=== PATIENT | male | born 1960 | race Caucasian/White ===

== ENCOUNTER → 2018-08-09 | Outpatient (CLI) | payer OTHER ==
[~2018-08-09] MED LIST: [UNRECOGNIZED DRUG - REMARK]
== END ==
LOC: CAT 14:34
DX: Z13.6 Encounter for screening for cardiovascular disorders (principal); E78.00 Pure hypercholesterolemia, unspecified

== ENCOUNTER → 2020-12-24 | Outpatient (CLI) | payer BC, OTHER ==
[~2020-12-24] MED LIST changes: +ASA81BEC PO; +CRESTOR20 MG PO; +IRBESARTAN150 MG PO; +PROAIR HFA8.5 GM INH; +REVATIO20 MG PO
== END ==
LOC: SJCVCIMAG 10:07
PROVIDERS: ATTEND Internal Medicine Cardiovascular Disease
DX: I70.201 Unspecified atherosclerosis of native arteries of extremities, right leg (principal); I10 Essential (primary) hypertension; R06.09 Other forms of dyspnea; R68.89 Other general symptoms and signs; Z72.0 Tobacco use

== ENCOUNTER → 2020-12-26 | Outpatient (CLI) | payer BC, OTHER ==
[~2020-12-26] VITALS: Ht 177.8 cm; Wt 85.7 kg
[2020-12-26 07:02] VITALS: BP 141/79
[2020-12-26 07:34] LABS: HEMATOCRIT 49.2 % (42.0-52.0); HEMOGLOBIN 16.7 gm/dL (14.0-18.0); MCH 32.7 pg (26.0-34.0); MCHC 33.9 g/dL (28.0-37.0); MCV 96.4 fL (80.0-100.0); RBC 5.11 mil/uL (4.50-6.00); RDW 13.3 % (10.5-14.5); WBC 7.3 thou/uL (4.0-11.0)
[2020-12-26 07:43] LABS: CALCIUM 9.2 mg/dL (8.5-10.1); CREATININE 0.9 mg/dL (0.7-1.3); POTASSIUM 4.3 mmol/L (3.5-5.1)
[2020-12-26 13:00] LABS: URINE BILIRUBIN NEGATIVE (Negative); URINE BLOOD NEGATIVE (Negative); URINE CLARITY CLEAR; URINE COLOR YELLOW; URINE GLUCOSE-RANDOM* NEGATIVE (Negative); URINE KETONES NEGATIVE (Negative); URINE LEUKOCYTES-REFLEX NEGATIVE (Negative); URINE NITRITE-REFLEX NEGATIVE (Negative); URINE PROTEIN (DIPSTICK) NEGATIVE (Negative); URINE SPECIFIC GRAVITY <= 1.005 (1.005-1.035); URINE UROBILINOGEN 0.2 E.U./dl (0.2-1.0)
--- NOTE | 2020-12-26 16:52 | CATHLAB ---
[facility] [place] [address] [address] INVASIVE PROCEDURE REPORT Name: BESS ROSALES Room #: REG [facility].#: [id number] Admission: 12/26/20 Attend Phys: Adam Jennings MD Discharge: Date of : 64 Report #: [id number] THIS REPORT FOR: cc: Jaspal Leone Louis D. DO Mancuso, Gerald M. MD [facility] ~ APPROVED REPORT Study performed: 12/26/2020 09:03:07 Patient Details Patient Status: Out-Patient Room #: The patient is a 60 year-old male Event Personnel Adam Jennings Radiologist, Efra Sams Nickel Plant Operator, Ester Pizarro RTR, Davin Nicolas Roberta Monitor, Lottie Yee RN mail order clerk Performed Left Heart Cath w/or w/o Coronaries [id number] [facility] Indication Chest pain Procedure Narrative A sheath was inserted into the LFA^. Coronary angiography was performed using coronary diagnostic catheters. The right coronary system was accessed and visualized with a JR4 catheter. The left coronary system was accessed and visualized with a JL4 catheter. The left ventricle was accessed and visualized with a STR PIG catheter. Left ventriculogram was performed in 30 degree projection. There was no hematoma. tHERE WAS A COMBO CASE W DR. BRITTNEE GAN/[facility] Intraoperative Conscious Sedation Fentanyl mcg Versed mg NO SEDATION FOR THE HEART CATH. PART Fluoro Time: 4.89 minutes Dose: DAP 82470.30 cGycm2 896 mGy Contrast Type and Amount: Visipaque 108 ml Hemodynamics [facility] [address] [place] [address] INVASIVE PROCEDURE REPORT Name: BESS ROSALES Room #: REG CL Sakina#: [id number] Admission: 12/26/20 Attend Phys: Adam Jennings, Discharge: Date of : 64 Report #: [id number] The aortic pressure is 142/70 mmHg with a mean of 106 mmHg. The left ventricular pressure is 148/6 mmHg with a mean of mmHg. The left ventricular end diastolic pressure is 20 mmHg. Conclusion #1. Normal left ventricular size and systolic function EF 60% #2 l LAD with mild disease which extends to the apex diffusely disease and smaller attenuated vessel at the apex. No indication for intervention. #3 left main mild disease giving rise to the LAD and circumflex. Widely patent #4 circumflex OM is a dominant vessel with minimal distal irregularity no occlusive disease #5 small nondominant right coronary artery no occlusive disease Recommendations and plan: Continue aggressive risk factor modification no indication for coronary intervention. Diffusely diseased distal LAD at the apex could be consistent with the subtle anterior apical findings on nuclear stress test. <ELECTRONICALLY SIGNED> By: Efra Sams MD, [facility] 12/26/20 1652 [id number] Efra Sams MD, FACC /INF
== END | disposition home or self-care (01) ==
LOC: CATH 06:30
PROVIDERS: Surgery Vascular Surgery; ATTEND Nuclear Medicine Nuclear Cardiology
DX: R07.9 Chest pain, unspecified (principal); I25.10 Atherosclerotic heart disease of native coronary artery without angina pectoris; I70.213 Atherosclerosis of native arteries of extremities with intermittent claudication, bilateral legs; I70.1 Atherosclerosis of renal artery; I10 Essential (primary) hypertension; E78.00 Pure hypercholesterolemia, unspecified; K21.9 Gastro-esophageal reflux disease without esophagitis; F17.210 Nicotine dependence, cigarettes, uncomplicated; Z98.890 Other specified postprocedural states; Z79.899 Other long term (current) drug therapy

== ENCOUNTER → 2021-01-07 | Outpatient (CLI) | payer BC, OTHER ==
[~2021-01-07] MED LIST changes: +IBUPROFEN 400400 M1 PO
[2021-01-07 09:32] LABS: ABSOLUTE NEUTROPHILS 5.6 thou/uL (1.4-8.2); BASOPHILS 0.5 % (0.0-2.0); EOSINOPHILS 5.1 % (0.0-3.0); HEMOGLOBIN 16.4 gm/dL (14.0-18.0); LYMPHOCYTES 17.7 % (24.0-44.0); MCH 32.6 pg (26.0-34.0); MCHC 34.2 g/dL (28.0-37.0); MCV 95.2 fL (80.0-100.0); MONOCYTES 7.6 % (1.0-8.0); PLATELET COUNT 253 thou/uL (150-400); POLYS 69.1 % (36.0-66.0); RBC 5.04 mil/uL (4.50-6.00); RDW 13.1 % (10.5-14.5); WBC 8.1 thou/uL (4.0-11.0)
[2021-01-07 09:44] LABS: CREATININE 0.9 mg/dL (0.7-1.3); POTASSIUM 4.3 mmol/L (3.5-5.1); TOTAL BILIRUBIN 0.5 mg/dL (0.2-1.0); TOTAL PROTEIN 6.8 g/dL (6.4-8.2)
[2021-01-07 09:45] LABS: APTT 25.2 Seconds (24.5-32.8); INR 0.9; PROTIME 9.7 Seconds (9.3-11.4)
--- NOTE | 2021-01-07 17:31 | EKG ---
[place] [address] [address] [place] [address] ELECTROCARDIOGRAM REPORT Name: CONNIEBESS Elena Room #: REG RENEA Presley#: [id number] Admission: 01/07/21 Attend Phys: Blanca Romero DO Discharge: Date of : 64 Report #: [id number] [facility] Test Date: 2021-01-07 Test Time: 09:06:13 Pat Name: BESS ROSALES Department: Room: Gender: M Compliance Representative: Leta ANTON : 1960 Requested By: Thom Jacobs Order Number: [id number] MD: Greg Givens Measurements Intervals [place] Rate: 68 P: 42 [place]: 155 QRS: -61 QRSD: 111 T: 58 QT: 403 QTc: 429 Interpretive Statements Sinus rhythm RSR' in V1 or V2, right VCD Inferior infarct, old Baseline wander in lead(s) I,III,aVL Compared to ECG 02/07/2015 14:01:45 RSR' in V1 or V2 now present Myocardial infarct finding now present Sinus bradycardia no longer present Electronically Signed On 01-07-2021 17:31:33 CDT by Greg Givens [email or web address] <ELECTRONICALLY SIGNED> By: Greg Givens MD, [facility] 01/07/21 [id number] [phone] Greg Givens MD, [facility] /EPI
== END ==
LOC: CANPRECLI → LAB 08:27
PROVIDERS: Surgery Vascular Surgery; ATTEND Student in an Organized Health Care Education/Training Program
DX: Z01.812 Encounter for preprocedural laboratory examination (principal); Z20.822 Contact with and (suspected) exposure to COVID-19; J98.4 Other disorders of lung

== ENCOUNTER → 2021-03-28 | Outpatient (CLI) | payer BC, OTHER | LOC: SJCVCIMAG 08:19 | PROVIDERS: ATTEND Nuclear Medicine Nuclear Cardiology | DX: I65.23 Occlusion and stenosis of bilateral carotid arteries (principal); M79.604 Pain in right leg; I73.9 Peripheral vascular disease, unspecified; Z98.890 Other specified postprocedural states; Z87.891 Personal history of nicotine dependence ==